=== PATIENT | female | born 1990 | race Caucasian/White ===

== ENCOUNTER 2022-01-17 19:42 | Emergency (ER) | payer MEDICAID ==
[2022-01-17 21:45] VITALS: BP 118/69; PULSE 62
[2022-01-17 21:50] LABS: ESTIMATED GFR 68 mL/min (>60)
== END 2022-01-17 22:54 | disposition home or self-care (01) ==
LOC: JP.ED 19:42
DX: R10.12 Left upper quadrant pain (principal)
CPT/HCPCS: 36415; 80053; 81001; 81025; 85025; 86140; 99282; 99284

== ENCOUNTER 2024-05-08 06:11 | Day surgery (SDC) | payer MEDICAID ==
[2024-05-08 06:57] LABS: HEMOGLOBIN 13.6 g/dL (11.2-15.5); MEAN CORPUSCULAR HEMOGLOBIN 28.5 pg (31.6-35.5); MEAN CORPUSCULAR HGB CONC 33.2 g/dL (31.6-35.5); RED BLOOD CELL COUNT 4.77 M/uL (3.77-5.24); WHITE BLOOD CELL COUNT,WBC 10.3 K/uL (3.2-11.0)
[2024-05-08 07:20] LABS: A/G RATIO 0.7 (1.2-2.2); ALANINE AMINOTRANSFERASE,ALT 20 U/L (12-78); ALBUMIN 3.1 g/dL (3.4-5.0); ALKALINE PHOSPHATASE 99 U/L (46-116); ANION GAP 8.9 mmol/L (5.0-14.0); ASPARTATE AMNIOTRANSFERASE,AST 14 U/L (15-37); BILIRUBIN TOTAL 0.4 mg/dL (0.2-1.0); BLOOD UREA NITROGEN,BUN 14 mg/dL (7-18); CARBON DIOXIDE,CO2 26 mmol/L (21-32); CHLORIDE,CL 106 mmol/L (100-108); EST CRCL DRUG DOSING (CG) 79.21 mL/min; ESTIMATED GFR 75 mL/min (>60); GLUCOSE RANDOM 111 mg/dL (74-106); POTASSIUM,K 4.3 mmol/L (3.6-5.2); PROTEIN TOTAL,TP 7.7 g/dL (6.4-8.2); SODIUM,NA 141 mmol/L (140-148)
[2024-05-08] MEDS: Sodium Chloride 0.9% 1,000 ML IV SCH (07:20)
[2024-05-08] MEDS: Indocyanine Green 25 MG SDV IV ONE (07:20)
[2024-05-08] MEDS: metroNIDAZOLE/Normal Saline 500 MG in Premix Bag 1 BAG IV ONE (07:27)
[2024-05-08] MEDS ORDERED: fentaNYL 250 MCG/5 ML SDV ONE ×2 (07:30→08:45)
[2024-05-08] MEDS ORDERED: Glycopyrrolate 0.2 MG/ML 5 ML MDV ONE (07:31)
[2024-05-08] MEDS ORDERED: Ondansetron 4 MG/2 ML SDV ONE (07:31)
[2024-05-08] MEDS ORDERED: Succinylcholine 200 MG/10 ML MDV ONE (07:31)
[2024-05-08] MEDS ORDERED: Propofol 200 MG/20 ML SDV ONE (07:31)
[2024-05-08] MEDS ORDERED: Dexamethasone 4 MG/ML SDV ONE (07:31)
[2024-05-08] MEDS ORDERED: Neostigmine Methylsulfate 10 MG/10 ML MDV ONE (07:31)
[2024-05-08] MEDS ORDERED: Rocuronium 50 MG/5 ML Vial ONE (07:31)
[2024-05-08] MEDS: ceFAZolin 2 GM in Premix Bag 1 BAG IV ONE (08:48)
[2024-05-08] MEDS: Bupivacaine 0.5%/EPINEPHrine 1:200,000 50 ML MDV ONE (08:57)
[2024-05-08] MEDS ORDERED: Ketorolac 30 MG/ML SDV ONE (09:21)
[2024-05-08] MEDS: hydrOXYzine HCL 100 MG/2 ML SDV IM ONE (10:17)
[2024-05-08] MEDS: Acetaminophen/HYDROcodone 325-5 MG Tab PO PRN (11:39)
[2024-05-08 12:51] VITALS: BP 145/71; PULSE 88
== END 2024-05-08 13:05 | disposition home or self-care (01) ==
LOC: JP.SDS 06:11
PROVIDERS: ATTEND Surgery
DX: K81.9 Cholecystitis, unspecified (principal); F32.5 Major depressive disorder, single episode, in full remission; J45.909 Unspecified asthma, uncomplicated; Z88.6 Allergy status to analgesic agent
CPT/HCPCS: 00790; 36415; 47562; 80053; 84703; 85027; 87070; 87075; 87205; A9270; J0171; J0330; J0690; J1100; J1596; J1836; J1885; J2405; J2704; J2710; J2795; J3010; J3410; J3490; J7030

== ENCOUNTER 2024-09-03 19:16 | Emergency (ER) | payer MEDICAID ==
[2024-09-03 20:37] VITALS: BP 146/104; PULSE 114
== END 2024-09-03 23:10 | disposition home or self-care (01) ==
LOC: JP.ED 19:16
DX: S61.254A Open bite of right ring finger without damage to nail, initial encounter (principal); Z88.6 Allergy status to analgesic agent; Z79.899 Other long term (current) drug therapy; Z90.49 Acquired absence of other specified parts of digestive tract; W57.XXXA Bitten or stung by nonvenomous insect and other nonvenomous arthropods, initial encounter
CPT/HCPCS: 12002; 99283

== ENCOUNTER 2025-03-11 20:57 | Emergency (ER) | payer MEDICAID ==
[2025-03-11] MEDS: Ampicillin/Sulbactam Na 3 GM in Sodium Chloride 0.9% 100 ML IV ONE (22:57)
[2025-03-12] MEDS: Bacitracin Oint 1 GM U/D Packet TOP ONE (00:15)
[2025-03-12] MEDS: Ketorolac 15 MG/ML SDV IVPUSH ONE (00:49)
[2025-03-12 01:10] VITALS: BP 142/82; PULSE 89
== END 2025-03-12 00:55 | disposition home or self-care (01) ==
LOC: JP.ED 20:57
DX: S51.852A Open bite of left forearm, initial encounter (principal); Z88.8 Allergy status to other drugs, medicaments and biological substances; Z79.899 Other long term (current) drug therapy; Z90.49 Acquired absence of other specified parts of digestive tract; W54.0XXA Bitten by dog, initial encounter
CPT/HCPCS: 73090; 96365; 96375; 99283; J0295; J1885; J2003; 12002; J1171